=== PATIENT | male | born 1960 | race Caucasian/White ===

== ENCOUNTER 2017-03-08 10:11 | Day surgery (SDC) | payer OTHER ==
[~2017-03-08 10:11] MED LIST: Metoclopramide 10 MG/2 ML SDV IV PRN; Sodium Chloride 0.9% 1,000 ML IV SCH; Sodium Chloride 0.9% 10 ML Syringe FLUSH PRN
[2017-03-08] MEDS ORDERED: Propofol 200 MG/20 ML SDV ONE (12:30)
[2017-03-08 14:21] VITALS: BP 124/72
--- NOTE | 2017-03-08 18:27 | OR ---
DATE OF OPERATION: 03/08/2017 PREOPERATIVE DIAGNOSIS: Screening colonoscopy, primary, average risk. POSTOPERATIVE DIAGNOSIS: Normal colonoscopy. OPERATION: Screening colonoscopy. COMPLICATIONS: None. DRAINS: None. SPECIMENS: None. ESTIMATED BLOOD LOSS: Zero. ANESTHESIA: General propofol anesthesia. INDICATION: Mr. Charlton is a 56-year-old gentleman here for his primary screening colonoscopy. He is asymptomatic and of average risk. The above-mentioned procedure was explained. The risks, benefits, and complications were explained. The patient understood and agreed and is brought to the operating room. DESCRIPTION OF PROCEDURE: The patient was brought to the operating room and placed in the left lateral decubitus position on the operating room table. Satisfactory general propofol anesthesia was administered. We began by performing a rectal examination, which was within normal limits. Next, I introduced the endoscope by finger introduction into the rectum and subsequently advanced to the level of the cecum. The cecum was identified by the appendiceal orifice, the ileocecal valve and the cecal strap. Careful evaluation of mucosa was performed on withdrawal. There were no telangiectasias. No polyps. No neoplastic growths or diverticula. Next, we retroflexed in the rectum, which revealed no significant findings. The colon was then decompressed and the endoscope was withdrawn. The patient tolerated the procedure well. There were no complications. Instrument count was correct. The patient was awoken in the OR and taken to the PACU for recovery. HAMILTON /[id number]
== END 2017-03-08 13:35 | disposition home or self-care (01) ==
LOC: LB.SDS 10:11
PROVIDERS: ATTEND Surgery
DX: Z12.11 Encounter for screening for malignant neoplasm of colon (principal); J45.909 Unspecified asthma, uncomplicated; Z79.899 Other long term (current) drug therapy
CPT/HCPCS: 45378; J2704; J7040; J7050

== ENCOUNTER 2021-05-12 08:45 | Emergency (ER) | payer OTHER, MEDICAID ==
[2021-05-12] MEDS: Ketorolac 30 MG/ML SDV IVPUSH ONE (09:10)
[2021-05-12] MEDS: Sodium Chloride 0.9% 1,000 ML IV ONE ×2 (09:10→10:18)
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
[2021-05-12] MEDS: Ketorolac 30 MG/ML SDV ONE ×2 (09:16→11:58)
[2021-05-12] MEDS: Ondansetron 4 MG/2 ML SDV IVPUSH ONE (09:29)
[2021-05-12] MEDS: Ondansetron 4 MG/2 ML SDV ONE (09:38)
[2021-05-12] MEDS: Morphine 4 MG/ML VIAL IVPUSH ONE ×2 (09:48→11:06)
[2021-05-12] MEDS: Morphine 10 MG/ML Syringe IM ONE (09:48)
[2021-05-12] MEDS: Morphine 10 MG/ML SDV ONE (09:53)
[2021-05-12 10:11] VITALS: BP 136/93; PULSE 63
[2021-05-12] MEDS: Morphine 4 MG/ML VIAL ONE (11:04)
[2021-05-12] MEDS: Morphine 2 MG/ML SYRINGE ONE (11:11)
[2021-05-12] MEDS: Morphine 2 MG/ML SYRINGE IVPUSH ONE (11:11)
--- NOTE | 2021-05-12 11:21 | CT ---
DATE OF SERVICE: 05/12/2021 CLINICAL DATA: Right flank pain Unenhanced abdomen and pelvic CT: Multi slice acquisition through the abdomen and pelvis without IV or oral contrast was performed. No priors. There are mild emphysematous changes in both lower lungs. There are mild atelectatic changes in both lung bases. There is a linear density in the left upper lobe lingular segment consistent with linear atelectasis or fibrosis. There are calcified nodules in both lungs and there are calcified lymph nodes in both miriam consistent with prior granulomatous disease. The heart size is normal. Mild coronary artery calcifications. The liver is normal size with homogeneous attenuation. No focal hepatic lesions. The gallbladder appears normal. No calcified gallstones. No pericholecystic fluid. The spleen appears normal. The pancreas appears normal. The right and left adrenals appear normal. There is a 6 mm calculi located in the proximal right ureter at the ureteropelvic junction. There is hydronephrosis proximal to it consistent with obstruction. There is a 3 mm nonobstructing renal calculi in the lower pole of the left kidney. There is a 2.6 cm fluid density lesion within the right kidney consistent with a benign renal cyst. The kidneys and collecting systems are otherwise unremarkable. There is a small amount of fluid within the bladder. It appears normal. The prostate is enlarged. There are calcifications within the prostate consistent with chronic prostatitis. The appendix is not dilated. No evidence of appendicitis. There is minimal diverticulosis of the descending and sigmoid colon. No evidence of diverticulitis. No free air. No free fluid. No dilated loops of bowel. No adenopathy. No aortic aneurysm. There is degenerative disc disease throughout the lower thoracic and lumbar spine. Impression: 6 mm right ureteral calculi at the ureteropelvic junction with proximal hydronephrosis. Other findings as discussed above. Thank you for allowing us to participate in the care of your patient. IVIS
[2021-05-12] MEDS: Ketorolac 60 MG/2 ML SDV IVPUSH ONE (11:56)
[2021-05-12] MEDS: Acetaminophen/HYDROcodone 325-5 MG Tab PO ONE (12:45)
[2021-05-12] MEDS: Acetaminophen/HYDROcodone 325-5 MG Tab ONE (13:11)
[2021-05-12] MEDS: Acetaminophen/HYDROcodone 325-10 MG Tab ONE (13:11)
== END 2021-05-12 13:40 | disposition home or self-care (01) ==
LOC: LB.ED 08:45
DX: N13.2 Hydronephrosis with renal and ureteral calculous obstruction (principal)
CPT/HCPCS: 36415; 74176; 80048; 81001; 85027; 96372; 96374; 96375; 96376; 99284; A9270; J1885; J2270; J2405; J7030

== ENCOUNTER 2022-09-09 12:00 | Emergency (ER) | payer OTHER, MEDICAID ==
[2022-09-09] MEDS ORDERED: Sodium Chloride 0.9% 10 ML Syringe FLUSH PRN (12:10)
[2022-09-09] MEDS ORDERED: Ondansetron 4 MG Tab.DIS PO ONE (12:10)
[2022-09-09] MEDS ORDERED: Ketorolac 30 MG/ML SDV IVPUSH ONE (12:10)
[2022-09-09] MEDS ORDERED: Morphine 4 MG/ML VIAL IVPUSH ONE (13:48)
[2022-09-09] MEDS ORDERED: HYDROmorphone 2 MG/ML Syringe IVPUSH ONE (14:27)
[2022-09-09] MEDS ORDERED: HYDROmorphone 2 MG/ML Syringe ONE (14:40)
[2022-09-09] MEDS ORDERED: Ketorolac 10 MG Tab ONE (15:00)
[2022-09-09] MEDS ORDERED: Ciprofloxacin 500 MG Tab ONE (15:00)
[2022-09-09 15:56] VITALS: BP 122/81; PULSE 64
== END 2022-09-09 15:35 | disposition home or self-care (01) ==
LOC: LB.ED 12:00
DX: N23 Unspecified renal colic (principal); Z79.899 Other long term (current) drug therapy
CPT/HCPCS: 36415; 74176; 80048; 81001; 85027; 96374; 96375; 99284; A9270; J1170; J1885; J2270; J3490; Q0162; 99283

== ENCOUNTER 2022-09-11 19:23 | Emergency (ER) | payer MEDICAID, OTHER ==
[2022-09-11] MEDS ORDERED: Sodium Chloride 0.9% 10 ML Syringe FLUSH PRN (19:38)
[2022-09-11] MEDS: Morphine 2 MG/ML SYRINGE IM ONE (19:55)
[2022-09-11] MEDS: Ondansetron 4 MG/2 ML SDV IVPUSH ONE (20:10)
[2022-09-11] MEDS: Sodium Chloride 0.9% 1,000 ML IV SCH (20:10)
[2022-09-11] MEDS: HYDROmorphone 2 MG/ML Syringe IVPUSH STA (20:12)
[2022-09-11] MEDS: Ketorolac 60 MG/2 ML SDV IVPUSH ONE (20:14)
[2022-09-11] MEDS: HYDROmorphone 2 MG/ML SDV IVPUSH ONE (20:30)
[2022-09-11] MEDS ORDERED: Acetaminophen/oxyCODONE 325-5 MG Tab ONE (21:30)
[2022-09-11 22:20] VITALS: BP 121/80; PULSE 82
== END 2022-09-11 21:40 | disposition home or self-care (01) ==
LOC: SUPCPDRO 19:23 → LB.ED 19:23
DX: N20.0 Calculus of kidney (principal); J45.909 Unspecified asthma, uncomplicated; Z79.899 Other long term (current) drug therapy
CPT/HCPCS: 96361; 96372; 96374; 96375; 99283-25; A9270-GY; J1170; J1885; J2270; J2405; J7030

== ENCOUNTER 2024-04-13 07:58 | Day surgery (SDC) | payer BC, MEDICAID ==
[2024-04-13] MEDS: Lactated Ringers 1,000 ML IV SCH ×2 (08:22→09:31)
[2024-04-13] MEDS: ceFAZolin 1 GM Vial IV ONE (09:15)
[2024-04-13] MEDS: ceFAZolin 1 GM in Premix Bag 1 BAG IV ONE (09:15)
[2024-04-13] MEDS ORDERED: Propofol 200 MG/20 ML SDV ONE (09:30)
[2024-04-13] MEDS ORDERED: fentaNYL 100 MCG/2 ML SDV ONE (09:30)
[2024-04-13 10:11] VITALS: BP 137/90; PULSE 51
[2024-04-13] MEDS: Acetaminophen/HYDROcodone 325-5 MG Tab PO PRN (10:32)
== END 2024-04-13 10:42 | disposition home or self-care (01) ==
LOC: LB.SDS 07:58
PROVIDERS: ATTEND Orthopaedic Surgery
DX: M65.341 Trigger finger, right ring finger (principal); I10 Essential (primary) hypertension; J45.909 Unspecified asthma, uncomplicated
CPT/HCPCS: 26055; A9270; J0690; J2704; J3010; J7120

== ENCOUNTER 2025-02-02 08:31 | Emergency (ER) | payer BC ==
[2025-02-02] MEDS: HYDROmorphone 1 MG/ML Syringe IVPUSH ONE (08:55)
[2025-02-02] MEDS: HYDROmorphone 2 MG/ML Syringe ONE (09:20)
[2025-02-02] MEDS: Sodium Chloride 0.9% 1,000 ML IV ONE (09:31)
[2025-02-02 09:33] LABS: BASE EXCESS ARTERIAL -0.4 (-2-2); BICARBONATE,ARTERIAL 23.2 mmol/L (22-26); O2 SATURATION ARTERIAL 98.4 % (95-98); PCO2 ARTERIAL 31.4 mmHg (35-45); PO2 ARTERIAL 103.3 mmHg (80-105)
[2025-02-02 09:36] LABS: BASOPHILS ABSOLUTE AUTO 0.05 K/uL (0.02-0.10); BASOPHILS PERCENT AUTO 0.3 % (0.0-0.5); EOSINOPHILS ABSOLUTE AUTO 0.25 K/uL (0.04-0.40); EOSINOPHILS PERCENT AUTO 1.7 % (1.0-5.0); HEMATOCRIT 36.6 % (40.0-54.0); HEMOGLOBIN 12.1 g/dL (13.0-18.0); LYMPHOCYTES ABSOLUTE AUTO 1.11 K/uL (1.50-4.00); LYMPHOCYTES PERCENT AUTO 7.7 % (20.0-40.0); MEAN CORPUSCULAR HEMOGLOBIN 30.8 pg (27.0-32.0); MEAN CORPUSCULAR HGB CONC 33.1 g/dL (31.0-35.0); MEAN CORPUSCULAR VOLUME 93 fL (76-96); MEAN PLATELET VOLUME 10.2 fL (6.0-10.0); MONOCYTES ABSOLUTE AUTO 0.94 K/uL (0.20-0.80); MONOCYTES PERCENT AUTO 6.5 % (3.0-10.0); NEUTROPHILS PERCENT AUTO 83.8 % (45.0-70.0); PLATELET COUNT,PLT 548 K/uL (150-400); RED BLOOD CELL COUNT 3.93 M/uL (4.50-6.50); RED CELL DISTRIBUTION WIDTH 13.8 % (11.0-16.0); WHITE BLOOD CELL COUNT,WBC 14.5 K/uL (4.0-11.0)
[2025-02-02 10:09] LABS: A/G RATIO 0.8 (0.8-2.0); BILIRUBIN TOTAL 0.6 mg/dL (0.0-1.0); BUN/CREATININE RATIO 21.6 (6-25); CALCIUM 8.7 mg/dL (8.5-10.1); CARBON DIOXIDE,CO2 26.2 mmol/L (21.0-32.0); CREATININE 1.02 mg/dL (0.70-1.30); EST CRCL DRUG DOSING (CG) 87.3 mL/min; INR 1.1 (1.0-3.5); POTASSIUM,K 5.2 mmol/L (3.5-5.1); PROTEIN TOTAL,TP 6.9 g/dL (6.4-8.2); PTT,PARTIAL THROMBOPLSTIN TIME 25.8 SECONDS (24.4-33.2)
[2025-02-02] MEDS ORDERED: Naloxone 2 MG/2 ML Syringe IVPUSH PRN ×2 (10:09→11:05)
[2025-02-02 10:10] LABS: TROPONIN I HIGH SENSITIVITY 201.8 pg/ml (<=60.4)
[2025-02-02] MEDS: Morphine 4 MG/ML VIAL IVPUSH ONE (10:12)
[2025-02-02 10:13] LABS: PROTHROMBIN TIME 11.9 sec (9.0-11.5)
[2025-02-02] MEDS: Nitroglycerin 0.4 MG Tab.SL SL PRN (10:15)
[2025-02-02 10:22] VITALS: PULSE 109
[2025-02-02] MEDS: Aspirin 81 MG Tab.Chew PO ONE (10:34)
[2025-02-02] MEDS: Nitroglycerin 0.4 MG Tab.SL SL ONE (10:35)
[2025-02-02] MEDS: Iopamidol 755 Mg/ML 100 ML Bottle IV SCH (10:50)
[2025-02-02] MEDS: Sodium Chloride 0.9% 50 ML SDV FLUSH ONE (10:50)
[2025-02-02] MEDS: Heparin Sodium 5,000 Units/ML Vial IVPUSH ONE (11:06)
[2025-02-02] MEDS: Morphine 2 MG/ML SYRINGE IVPUSH ONE (11:09)
[2025-02-02 11:13] VITALS: BP 116/74
[2025-02-02] MEDS ORDERED: Heparin Sodium/D5W 25,000 UNITS/500 ML BAG IV SCH (11:30)
[2025-02-05] MEDS: Heparin Sodium/D5W 500 ML ONE (09:06)
== END 2025-02-02 11:46 ==
LOC: LB.ED 08:31
DX: I21.4 Non-ST elevation (NSTEMI) myocardial infarction (principal); I26.99 Other pulmonary embolism without acute cor pulmonale; I10 Essential (primary) hypertension; J45.909 Unspecified asthma, uncomplicated; Z79.51 Long term (current) use of inhaled steroids; Z79.899 Other long term (current) drug therapy
CPT/HCPCS: 36415; 36600; 71045; 71260; 80053; 82803; 83605; 83735; 83880; 84484; 85025; 85379; 85610; 85730; 93005; 96361; 96374; 96375; 96376; 99285; 99285-25; A0425; A0428; A0429; A9270-GY; J1171; J1644; J2270; J3490; J7030; Q9967